=== PATIENT | male | born 1955 | race Caucasian/White ===

== ENCOUNTER → 2024-01-18 10:11 | Outpatient (BNVA) | payer MEDICARE, SELFPAY | PROVIDERS: PCP Family Medicine Adult Medicine; Visit Provider Family Medicine Adult Medicine | DX: D64.9 Anemia, unspecified (principal); I10 Essential (primary) hypertension; N18.9 Chronic kidney disease, unspecified | CPT/HCPCS: 80053; 80061; 84443; 85025 ==

== ENCOUNTER 2024-04-07 10:33 | Outpatient (CLI) | payer MEDICARE, SELFPAY ==
--- NOTE | 2024-04-07 10:45 | USCV_ITS ---
Kevin Maravilla Age: 68 Gender: M : 1955 Exam Date: 04/07/2024 10:37 Ordering Phys: Abdelrahman Frank MD Technologist: USR Exam Location: [facility] – [place] Indication: LE Edema HISTORY: Lower extremity edema. PROCEDURES: Venous duplex imaging was performed in bilateral lower extremities. The following venous structures were evaluated: common femoral vein, profunda vein, proximal portion of the greater saphenous vein, superficial femoral vein, and the popliteal vein. In addition, the posterior tibial and peroneal trunk were evaluated. Serial compression, augmentation maneuvers, and spectral Doppler flow evaluation were performed. FINDINGS: No evidence of DVT seen in any vessel visualized at this time. CONCLUSIONS No evidence of right lower extremity DVT. No evidence of left lower extremity DVT. Cash Church MD (Electronically Signed) Final Date: 07 April 2024 16:24 S
== END 2024-04-07 10:34 | disposition home or self-care (01) ==
LOC: RAD 10:34
PROVIDERS: PCP Family Medicine Adult Medicine; Visit Provider Family Medicine Adult Medicine
DX: R60.0 Localized edema (principal)
CPT/HCPCS: 93970

== ENCOUNTER 2024-04-10 12:11 | Outpatient (CLI) | payer MEDICARE, SELFPAY ==
--- NOTE | 2024-04-10 12:45 | USCV_ITS ---
Kevin Maravilla Age: 68 Gender: M : 1955 Exam Date: 04/10/2024 12:16 Ordering Phys: Abdelrahman Frank MD Technologist: PEDRO Exam Location: [facility] – [place] Indication: BLE SWELLING Risk Factors: Previous Vascular Surgery: RIGHT LEFT Waveform Velocity (cm/s) Velocity (cm/s) Waveform Triphasic 103.6 Iliac Prox 106.6 Triphasic Triphasic 125.6 Iliac Mid 98.1 Triphasic Triphasic 126.4 Iliac Distal 106.0 Triphasic Triphasic 103.0 BUTTON MAKER AND INSTALLER 126.0 Triphasic Triphasic 109.0 SFA Prox 152.0 Triphasic Triphasic 113.0 SFA Mid 151.0 Triphasic Triphasic 111.0 SFA Dist 117.0 Triphasic Triphasic 85.0 POP 151.0 Triphasic Triphasic 126.0 FISHERIES TECHNICAL OFFICER 80.0 Triphasic Triphasic 111.0 DPA 67.0 Triphasic FINDINGS UNABLE TO OBTAIN NATALY'S DUE TO OPEN WOUNDS Mild diffuse plaque in the iliac, femoral and popliteal arteries bilaterally Normal Doppler flow velocities and waveforms bilaterally CONCLUSIONS 1. No significant arterial obstruction, based on the above finding 2. Mild diffuse plaque in the iliac, femoral and popliteal arteries bilaterally 3. NATALY could not be obtained because of the open wounds Dr Leonardo Chaparro MD [facility] (Electronically Signed) Final Date: 10 April 2024 22:24 S
== END 2024-04-10 12:12 | disposition home or self-care (01) ==
LOC: RAD 12:12
PROVIDERS: PCP Family Medicine Adult Medicine; Visit Provider Family Medicine Adult Medicine
DX: Z87.442 Personal history of urinary calculi (principal); R60.0 Localized edema
CPT/HCPCS: 93925

== ENCOUNTER 2024-11-04 20:00 | Outpatient (CLI) | payer MEDICARE, SELFPAY | END 2024-11-04 20:01 | disposition home or self-care (01) | LOC: SLEEP 23:26 | PROVIDERS: PCP Family Medicine Adult Medicine; Visit Provider Family Medicine | DX: G47.33 Obstructive sleep apnea (adult) (pediatric) (principal); G47.36 Sleep related hypoventilation in conditions classified elsewhere; I49.3 Ventricular premature depolarization | CPT/HCPCS: 95810 ==

== ENCOUNTER → 2025-01-22 14:48 | Outpatient (BNVA) | payer MEDICARE, SELFPAY | PROVIDERS: PCP Family Medicine; Visit Provider Family Medicine | DX: R60.9 Edema, unspecified (principal); I10 Essential (primary) hypertension; N18.4 Chronic kidney disease, stage 4 (severe) | CPT/HCPCS: 80053; 80061; 84439; 84443; 85025 ==

== ENCOUNTER → 2025-02-11 08:49 | Outpatient (BNVA) | payer MEDICARE, SELFPAY | PROVIDERS: PCP Family Medicine; Visit Provider Thoracic Surgery (Cardiothoracic Vascular Surgery) | DX: I96 Gangrene, not elsewhere classified (principal); I87.2 Venous insufficiency (chronic) (peripheral); L97.821 Non-pressure chronic ulcer of other part of left lower leg limited to breakdown of skin; L97.811 Non-pressure chronic ulcer of other part of right lower leg limited to breakdown of skin | CPT/HCPCS: 97597; 97598; A6252; A6253 ==

== ENCOUNTER → 2025-02-13 08:55 | Outpatient (BNVA) | payer MEDICARE, SELFPAY | PROVIDERS: PCP Family Medicine; Visit Provider Thoracic Surgery (Cardiothoracic Vascular Surgery) | DX: I87.313 Chronic venous hypertension (idiopathic) with ulcer of bilateral lower extremity (principal); I87.2 Venous insufficiency (chronic) (peripheral); L97.821 Non-pressure chronic ulcer of other part of left lower leg limited to breakdown of skin; L97.811 Non-pressure chronic ulcer of other part of right lower leg limited to breakdown of skin; Z09 Encounter for follow-up examination after completed treatment for conditions other than malignant neoplasm | CPT/HCPCS: 97597 ==

== ENCOUNTER → 2025-02-13 08:55 | Outpatient (BNVA) | payer MEDICARE, SELFPAY | PROVIDERS: PCP Family Medicine; Visit Provider Thoracic Surgery (Cardiothoracic Vascular Surgery) | DX: I87.313 Chronic venous hypertension (idiopathic) with ulcer of bilateral lower extremity (principal); I87.2 Venous insufficiency (chronic) (peripheral); L97.821 Non-pressure chronic ulcer of other part of left lower leg limited to breakdown of skin; L97.811 Non-pressure chronic ulcer of other part of right lower leg limited to breakdown of skin | CPT/HCPCS: 29581; A6253 ==

== ENCOUNTER → 2025-02-19 10:12 | Outpatient (BNVA) | payer MEDICARE, SELFPAY | PROVIDERS: PCP Family Medicine; Visit Provider Thoracic Surgery (Cardiothoracic Vascular Surgery) | DX: I96 Gangrene, not elsewhere classified (principal); I87.2 Venous insufficiency (chronic) (peripheral); L97.811 Non-pressure chronic ulcer of other part of right lower leg limited to breakdown of skin; Z09 Encounter for follow-up examination after completed treatment for conditions other than malignant neoplasm | CPT/HCPCS: A6197; A6252 ==

== ENCOUNTER 2025-02-25 09:31 | Outpatient (CLI) | payer MEDICARE, SELFPAY ==
--- NOTE | 2025-02-25 10:00 | USR_ITS ---
PROCEDURE INFORMATION: Exam: US Duplex Lower Extremity Veins, Bilateral, Venous Insufficiency Exam date and time: 02/25/2025 9:52 AM Age: 69 years old Clinical indication: Screening exam; Eval for reflux; Prior surgery; Surgery date: 6+ months; Surgery type: Cabg using gsv below knee of right leg; Additional info: I87.2 - venous insufficiency (chronic) (peripheral) TECHNIQUE: Imaging protocol: Real-time duplex ultrasound of the extremities with 2-D zelaya scale, color Doppler flow and spectral waveform analysis including responses to compression and other maneuvers (when performed) with image documentation. Complete exam focused on the bilateral lower extremity veins for venous insufficiency. COMPARISON: No relevant prior studies available. FINDINGS: Right deep veins: Unremarkable. The common femoral, femoral, proximal profunda femoral and popliteal veins are patent without thrombus. Normal Doppler waveforms. Normal compressibility and/or augmentation response. No evidence of venous reflux. The right common femoral vein reflux time was 0.78 seconds. Right superficial veins: Saphenofemoral junction and greater saphenous veins are patent without thrombus. No evidence of venous reflux. Left deep veins: Unremarkable. The common femoral, femoral, proximal profunda femoral and popliteal veins are patent without thrombus. Normal Doppler waveforms. Normal compressibility and/or augmentation response. No evidence of venous reflux. The left common femoral vein reflux time was 1.3 seconds. Left superficial veins: Saphenofemoral junction and greater saphenous veins are patent without thrombus. No evidence of venous reflux. Soft tissues: Unremarkable. US/CV julieta dup insugarcia [facility] [id number] IMPRESSION: No evidence of venous reflux.
== END 2025-02-25 09:32 | disposition home or self-care (01) ==
PROVIDERS: PCP Family Medicine; Visit Provider Thoracic Surgery (Cardiothoracic Vascular Surgery)
DX: I87.2 Venous insufficiency (chronic) (peripheral) (principal); R60.9 Edema, unspecified; S81.802A Unspecified open wound, left lower leg, initial encounter; S81.801A Unspecified open wound, right lower leg, initial encounter; X58.XXXA Exposure to other specified factors, initial encounter
CPT/HCPCS: 93970

== ENCOUNTER → 2025-02-26 09:53 | Outpatient (BNVA) | payer MEDICARE, SELFPAY | PROVIDERS: PCP Family Medicine; Visit Provider Thoracic Surgery (Cardiothoracic Vascular Surgery) | DX: I96 Gangrene, not elsewhere classified (principal); I87.2 Venous insufficiency (chronic) (peripheral); L97.811 Non-pressure chronic ulcer of other part of right lower leg limited to breakdown of skin | CPT/HCPCS: 97597; A6021; A6251 ==

== ENCOUNTER → 2025-03-02 13:50 | Outpatient (BNVA) | payer MEDICARE, SELFPAY | PROVIDERS: PCP Family Medicine; Visit Provider Family Medicine | DX: R60.9 Edema, unspecified (principal) | CPT/HCPCS: 80053 ==

== ENCOUNTER 2025-03-03 06:40 | Outpatient (CLI) | payer MEDICARE, SELFPAY ==
--- NOTE | 2025-03-03 07:00 | USCV_ITS ---
Kevin Maravilla Age: 69 Gender: M : 1955 Exam Date: 03/03/2025 07:10 Ordering Phys: Humberto Odonnell MD Technologist: [place] [facility] [place]: cad sob BP: / HR: 73 Rhythm: Sinus Technical Quality: Adequate MEASUREMENTS (Male / Female) Normal Values 2D ECHO LV Diastolic Diameter PLAX 7.1 cm 4.2 - 5.9 / 3.9 - 5.3 cm IVS Diastolic Thickness 1.5 cm 0.6 - 1.0 / 0.6 - 0.9 cm IVS Systolic Thickness 1.9 cm LVPW Diastolic Thickness 1.3 cm 0.6 - 1.0 / 0.6 - 0.9 cm LVPW Systolic Thickness 1.9 cm LVOT Diameter 2.0 cm LV Ejection Fraction 2D Teich 57.6 % LV Ejection Fraction MOD 4C 49.5 % LV Ejection Fraction MOD 2C 49.6 % LV Ejection Fraction 2C AL 47.5 % LA Diameter 6.2 cm RA Systolic Volume 4C AL 78.9 ml RA Systolic Volume 4C MOD 78.6 ml Aorta at Sinotubular Diameter 3.1 cm M-MODE LA Ao Ratio MM 1.5 AV Cusp Separation MM 2.1 cm DOPPLER AV Peak Velocity 104.0 cm/s LVOT Peak Velocity 67.0 cm/s AV Area Cont Eq vti 2.5 cm squared AV Area Cont Eq pk 2.1 cm squared MV Peak Velocity 143.0 cm/s MV Area PHT 5.8 cm squared Mitral E to A Ratio 2.4 TV Peak Velocity 349.0 cm/s TR Peak Velocity 367.0 cm/s TR Peak Gradient 53.9 mmHg TV Peak E Velocity 83.0 cm/s PV Peak Velocity 111.0 cm/s FINDINGS Left Ventricle Moderately increased left ventricular cavity size. Moderately decreased left ventricular systolic function. Left ventricular ejection fraction is estimated at 45 %. Grade III/IV diastolic dysfunction (restrictive filling pattern), severely elevated filling pressures. Right Ventricle The right ventricle is normal in size and function. Right Atrium Mildly increased right atrial size. Left Atrium Moderately increased left atrial size. Mitral Valve Mildly thickened mitral valve. No mitral valve stenosis. Severe mitral valve regurgitation. Aortic Valve Mild aortic valve calcification. No aortic valve stenosis. Mild aortic valve regurgitation. Tricuspid Valve Mild tricuspid valve regurgitation. Pulmonic Valve Lynh-dx-jcvafgan pulmonary valve regurgitation. Pericardium Normal pericardium without effusion. Aorta Normal ascending aorta dimension. IVC Inferior vena cava not visualized. CONCLUSIONS Moderately increased left ventricular cavity size. Moderately decreased left ventricular systolic function. Left ventricular ejection fraction is estimated at 45 %. Grade III/IV diastolic dysfunction (restrictive filling pattern), severely elevated filling pressures. Moderately increased left atrial size. Mildly thickened mitral valve. No mitral valve stenosis. Severe mitral valve regurgitation. Mild aortic valve calcification. No aortic valve stenosis. Mild aortic valve regurgitation. Mild tricuspid valve regurgitation. There is no pericardial effusion. Ann Schneider MD (Electronically Signed) Final Date: 07 Mar 2025 20:02 S
== END 2025-03-03 06:41 | disposition home or self-care (01) ==
PROVIDERS: PCP Family Medicine; Visit Provider Family Medicine
DX: R60.9 Edema, unspecified (principal); R93.1 Abnormal findings on diagnostic imaging of heart and coronary circulation; I34.0 Nonrheumatic mitral (valve) insufficiency; I35.8 Other nonrheumatic aortic valve disorders; I35.1 Nonrheumatic aortic (valve) insufficiency; I07.1 Rheumatic tricuspid insufficiency; I37.1 Nonrheumatic pulmonary valve insufficiency
CPT/HCPCS: 93306

== ENCOUNTER → 2025-03-05 09:34 | Outpatient (BNVA) | payer MEDICARE, SELFPAY | PROVIDERS: PCP Family Medicine; Visit Provider Thoracic Surgery (Cardiothoracic Vascular Surgery) | DX: Z09 Encounter for follow-up examination after completed treatment for conditions other than malignant neoplasm (principal); Z87.2 Personal history of diseases of the skin and subcutaneous tissue | CPT/HCPCS: A6219; J9999 ==

== ENCOUNTER → 2025-04-02 14:01 | Outpatient (BNVA) | payer MEDICARE, SELFPAY | PROVIDERS: PCP Family Medicine; Visit Provider Family Medicine | DX: N18.32 Chronic kidney disease, stage 3b (principal); E83.42 Hypomagnesemia | CPT/HCPCS: 80053; 82306; 82607; 83735 ==

== ENCOUNTER → 2025-06-04 12:53 | Outpatient (BNVA) | payer MEDICARE, SELFPAY | PROVIDERS: PCP Family Medicine; Referring Provider Family Medicine; Visit Provider Internal Medicine | DX: I25.10 Atherosclerotic heart disease of native coronary artery without angina pectoris (principal); I13.0 Hypertensive heart and chronic kidney disease with heart failure and stage 1 through stage 4 chronic kidney disease, or unspecified chronic kidney disease; N18.32 Chronic kidney disease, stage 3b; I50.42 Chronic combined systolic (congestive) and diastolic (congestive) heart failure; I34.0 Nonrheumatic mitral (valve) insufficiency; R07.9 Chest pain, unspecified; Z79.02 Long term (current) use of antithrombotics/antiplatelets; Z79.82 Long term (current) use of aspirin; Z95.1 Presence of aortocoronary bypass graft | CPT/HCPCS: 93005; 99204 ==

== ENCOUNTER 2025-06-23 07:39 | Outpatient (CLI) | payer MEDICARE, SELFPAY ==
--- NOTE | 2025-06-23 | ECG_ITS ---
[facility] Test Date: 2025-06-23 Pat Name: Kevin Maravilla Department: Room: Gender: Male Line Repairer: : 1955 Requested By: John Lakhani Order Number: [id number] Marline MD: John Lakhani M.D. Interpretive Statements LEXISCAN: Procedure: At the baseline, the blood pressure was 143/94 mmHg with a heart rate of 79 bpm. The electrocardiogram showed sinus rhythm with PACs The Lexiscan was infused over a period of 20 seconds. A total of 0.4 mg of Lexiscan was infused. The stress phase was continued for a total of 5 minutes. Heart rate was at the end of stress phase was 81 bpm and a blood pressure of 145/98 mmHg. The EKG at the peak infusion revealed normal sinus rhythm with no significant ST-T wave changes. Sestamibi was injected 20 seconds after the Lexiscan infusion. Blood pressure at the end of recovery phase was 143/97 mmHg with a heart rate of 82 bpm. Conclusion: 1. Normal EKG response to Lexiscan infusion 2. No Lexiscan induced chest pain or cardiac arrhythmia. 3. Normal blood pressure and heart rate response. 4. Sestamibi/sestamibi perfusion scan pending; see separate report. Electronically Signed On 07-05-2025 00:35:39 CDT by John Lakhani M.D. [email or web address]
[2025-06-23 08:03] VITALS: BMI 28.7
--- NOTE | 2025-06-23 08:03 | NMCV_ITS ---
NM marlena perf SPECT r/s* [id number] Kevin Maravilla Age: 69 Gender: M : 1955 Exam Date: 06/23/2025 08:43 Ordering Phys: John Lakhani M.D ([email or web address]) Technologist: SOURAV Bassett Exam Location: [facility] Indications: cp STRESS TEST [facility] IMAGE PROTOCOL Rest/Stress 1 Lexiscan Day Radiopharmaceutical Dose (mCi) Administration Site Administered by Rest: Tc-99m 10.3 IV Abbie Thorpe MODERN LANGUAGES PROFESSOR Sestamibi Stress:Tc-99m 33 IV Abbie Gomezgle, MODERN LANGUAGES PROFESSOR Sestamibi Rest: 23-Jun-2025 60 Discovery 630 Stress: 23-Jun-2025 30 Discovery 630 0.4mg Lexiscan. Supine position only as patient was unable to lay prone. SPECT RESULTS Technical Quality: Good Raw Data Analysis: Normal Image Corrections: No attenuation or motion correction applied Summed Stress Score: 26 Summed Rest Score: 24 Summed Difference Score: 6 PERFUSION FINDINGS Large areas of partially reversible perfusion defects seen in the inferior and inferolateral posadas. This is consistent with large areas of prior infarct with significant stewart-infarct ischemia seen in the RCA and left circumflex artery territories. FUNCTIONAL RESULTS (calculated via Gated SPECT) Stress Image LV EF (%): 40 Stress EDV (mL):281 TID: 1.16 Stress ESV (mL):170 FUNCTIONAL FINDINGS: LV systolic function is mild to moderately reduced with elevated TID ratio IMPRESSIONS 1. Abnormal myocardial perfusion imaging with large areas of prior infarct with significant stewart-infarct ischemia seen in the RCA and left circumflex artery territories. 2. LV systolic function is mild to moderately recduced with EF of 40%. John Lakhani MD (Electronically Signed) Final Date: 28 June 2025 00:36 S
[2025-06-23 09:36] VITALS: BP 143/97; PULSE 82
== END 2025-06-23 07:40 | disposition home or self-care (01) ==
PROVIDERS: PCP Family Medicine; Visit Provider Internal Medicine
DX: R07.9 Chest pain, unspecified (principal); R06.02 Shortness of breath; R93.1 Abnormal findings on diagnostic imaging of heart and coronary circulation
CPT/HCPCS: 36415; 78452; 93017; 96374; A9500; J2785

== ENCOUNTER → 2025-07-01 11:41 | Outpatient (BNVA) | payer MEDICARE, SELFPAY | PROVIDERS: PCP Family Medicine; Visit Provider Family Medicine | DX: Z12.5 Encounter for screening for malignant neoplasm of prostate (principal); N18.32 Chronic kidney disease, stage 3b; N40.0 Benign prostatic hyperplasia without lower urinary tract symptoms | CPT/HCPCS: 80053; 84153 ==

== ENCOUNTER 2025-07-02 07:11 | Day surgery (SDC) | payer MEDICARE, SELFPAY ==
--- NOTE | 2025-06-29 07:45 | PC.NURSE ---
Patient states he bales snot have anyone to drive him home or stay with him following procedure. Patient educated he has to have someone drive him and at least check in on him or we have to cancel. Patient will call brother who lives 40 minutes away to see if he can check in on him and patient states he could taxi home.
--- NOTE | 2025-07-02 07:16 | USCV_ITS ---
Kevin Maravilla Age: 69 Gender: M : 1955 Exam Date: 07/02/2025 08:23 Ordering Phys: John Lakhani M.D ([email or web address]) Technologist: [place] [facility] [place]: mr BP: / HR: Rhythm: Sinus Technical Quality: Adequate MEASUREMENTS (Male / Female) Normal Values Medications Per anesthesia team Complications None Proc. Components After anesthesia team sedated patient, we proceeded with advancing SHERIE probe. FINDINGS Left Ventricle Left ventricle is normal in size. LV systolic function is normal with EF of 50%. Right Ventricle Normal in size and function Right Atrium Normal Left Atrium Appears to be dilated LA Appendage No left atrial appendage thrombus IA Septum Normal appearance. No evidence of intracardiac shunting on bubble study. Mitral Valve Structurally normal mitral valve. Moderate mitral regurgitation Aortic Valve Structurally normal aortic valve. Tricuspid Valve Grossly normal Pulmonic Valve Not well visualized Pericardium Normal Aorta Appears to be normal CONCLUSIONS LV systolic function is normal with EF 50%. Left atrium appears to be dilated. No left atrial appendage thrombus. Moderate mitral regurgitation. John Lakhani MD (Electronically Signed) Final Date: 13 July 2025 09:26 S
[2025-07-02 07:25] VITALS: BP 140/111; PULSE 76; RESP 16; TEMP 36.4; O2SAT 95; BMI 28.7
--- NOTE | 2025-07-02 07:46 | ANES.PREANE2 ---
Pre-Anesthetic Assessment Height/Weight: Height 1.83 m Weight 96.162 kg Temp Pulse Resp BP Pulse Ox O2 Del Method 97.5 F L 76 16 140/111 95 Room Air 07/02/25 07:25 07/02/25 07:25 07/02/25 07:25 07/02/25 07:25 07/02/25 07:25 07/02/25 07:25 Preop Diagnosis: Mitral Regurgitation Operation Date: 07/02/25 08:30 Proposed Procedures p SHERIE - Echocardiogram Transesophageal(Not Applicable) - John Lakhani M.D Familial anesthetic complications: none Was Beta Nerissa taken within 24 hours: N/A Was Clonidine taken within 24 hours: N/A Last intake: Intake Last Liquid Date 07/01/25 Last Liquid Time 21:00 Last Solid Date 07/01/25 Last Solid Time 18:00 Social No alcohol and No tobacco Exam alert, oriented x 3, clear to auscultation bilaterally and regular rate & rhythm Airway Submandibular: within normal limits Cervical ROM: within normal limits Mallampati: Class II Dentition: full Comments: Comments: Missing 4 teeth History/ROS No significant history except as noted and No significant complaints Pulmonary Exertional Dyspnea and Sleep Apnea CV/HEM Coronary Artery Disease, Hypertension and Murmur mitral regurgitation Kidney Stones Hepatic None reported GI Gastroesophageal Reflux Disease Metabolic None reported Musc/skel None reported Neuropsych None reported Anesthetic Plan Anesthesia: MAC Risk of > 500 ml blood loss (7ml/kg in children): No Medications/Allergies Home Medications ?Medication ?Instructions ?Recorded ?Confirmed ?Last Taken ?Type ascorbic acid (vitamin C) 250 mg 250 mg PO DAILY 01/18/24 07/02/25 07/01/25 History tablet aspirin 81 mg tablet,delayed 81 mg PO DAILY 01/18/24 07/02/25 07/01/25 History release multivitamin 1 tab PO DAILY 01/18/24 07/02/25 07/01/25 History vit B complex 100 combo no.2 100 100 tab PO DAILY 01/18/24 07/02/25 07/01/25 History mg tablet,extended release (B-100 Complex ER) hydralazine 25 mg tablet 25 mg PO TID blood pressure #90 10/31/24 07/02/25 07/01/25 Rx tabs atorvastatin 40 mg tablet 40 mg PO DAILY #90 tabs 01/22/25 07/02/25 07/01/25 Rx bumetanide 2 mg tablet 2 mg PO QDAY #90 tabs 04/02/25 07/02/25 07/01/25 Rx allopurinol 100 mg tablet 100 mg PO DAILY 06/29/25 07/02/25 07/01/25 History clopidogrel 75 mg tablet 75 mg PO DAILY 06/29/25 07/02/25 07/02/25 History ferrous sulfate 325 mg (65 mg 325 mg PO DAILY 06/29/25 07/02/25 07/01/25 History iron) tablet (FeroSul) potassium chloride 20 mEq 20 meq PO DAILY #30 tabs 06/29/25 07/02/25 07/01/25 Rx tablet,extended release (K-Tab) tamsulosin 0.4 mg capsule 0.4 mg PO DAILY 06/29/25 07/02/25 07/01/25 History Allergies Allergy/AdvReac Type Severity Reaction Status Date / Time No Known Allergies Allergy Verified 07/02/25 07:21 Current Medications Generic Name Dose Route Start Last Admin Trade Name Freq PRN Reason Stop Dose Admin Sodium Chloride 1,000 mls @ 15 mls/hr 07/02/25 07:16 07/02/25 07:38 Sodium Chloride 0.9% IV 07/03/25 07:15 15 mls/hr .Q24H PRN Administration COLONOSCOPY FLUIDS PFSH Anesthesia Medical History Tremor of right hand CKD stage 3b, GFR 30-44 ml/min Edema Blisters of multiple sites Chronic venous stasis dermatitis of lower extremity Bilateral lower extremity edema CKD (chronic kidney disease) stage 4, GFR 15-29 ml/min 01/18/2024 Cr 3.6 & GFR 17 GERD (gastroesophageal reflux disease) History of kidney stones Cardiac disease CABG x2 vessels HTN (hypertension) with goal to be determined Mitral regurgitation Ureteral stricture Surgical History Nephrostomy status Hx of CABG Family History Father Heart attack Mother No problems noted. Social History (Reviewed 07/01/25 @ 11:08 by JENNIFER Lopez Smoking and tobacco/nicotine status: never used tobacco/nicotine Alcohol intake: current Alcohol intake frequency: holidays/special occasions only Alcohol type: beer Substance/Drug Use: never Data Anesthesia Cardiac Studies: Echocardiogram 03/03/25 Sestamibi Stress Test (Cardiology) 06/23/25
--- NOTE | 2025-07-02 08:31 | W.PM.OPSUD ---
Surgery/Procedure H&P Update DATE OF PROCEDURE: July 02, 2025 DATE H&P PERFORMED: 06/04/25 H&P UPDATE INFORMATION: I have reviewed H&P completed within last 30 days, I have examined patient prior to procedure and No changes to prior documentation PREOP DIAGNOSIS: Mitral Regurgitation PRIMARY INDICATION FOR PROCEDURE: Severe mitral regurgitation PLANNED PROCEDURE: Operation Date: 07/02/25 08:30 Proposed Procedures p SHERIE - Echocardiogram Transesophageal(Not Applicable) - John Lakhani M.D Anesthesia team is available. PATIENT REASSESSED PRIOR TO SEDATION, WITH NO CHANGE NOTED: Yes
[2025-07-02 08:50] VITALS: BP 119/81; PULSE 65; RESP 18; TEMP 36.2; O2SAT 99
[2025-07-02 09:13] VITALS: BP 133/89; PULSE 79; RESP 18; O2SAT 95
--- NOTE | 2025-07-02 09:20 | ANE.PACU2 ---
Inpatient post-anesthesia follow up: Airway intact: Yes Vital signs: Temperature 97.1 F Pulse Rate 79 Respiratory Rate 18 Blood Pressure 133/89 Pulse Oximetry 95 Oxygen Delivery Me thod Room Air Oxygen Flow Rate Fraction of Inspir ed Oxygen Hydration adequate: Yes Nausea and vomiting: No Pain level: 1 Mental status: Baseline
== END 2025-07-02 09:22 | disposition home or self-care (01) ==
PROVIDERS: PCP Family Medicine; Visit Provider Internal Medicine
PROC: (CPT 93312; principal; 2025-07-02 08:30)
DX: I34.0 Nonrheumatic mitral (valve) insufficiency (principal); I50.42 Chronic combined systolic (congestive) and diastolic (congestive) heart failure; I12.9 Hypertensive chronic kidney disease with stage 1 through stage 4 chronic kidney disease, or unspecified chronic kidney disease; N18.4 Chronic kidney disease, stage 4 (severe); Z95.1 Presence of aortocoronary bypass graft; Z79.82 Long term (current) use of aspirin; K21.9 Gastro-esophageal reflux disease without esophagitis
CPT/HCPCS: 93312; 93320; 93325; J2704; J7030

== ENCOUNTER → 2025-07-28 13:20 | Outpatient (BNVA) | payer MEDICARE, SELFPAY | PROVIDERS: PCP Family Medicine; Visit Provider Internal Medicine | DX: I34.0 Nonrheumatic mitral (valve) insufficiency (principal); I13.0 Hypertensive heart and chronic kidney disease with heart failure and stage 1 through stage 4 chronic kidney disease, or unspecified chronic kidney disease; I50.42 Chronic combined systolic (congestive) and diastolic (congestive) heart failure; N18.4 Chronic kidney disease, stage 4 (severe); I25.10 Atherosclerotic heart disease of native coronary artery without angina pectoris | CPT/HCPCS: 99214 ==